=== PATIENT | male | born 1950 | race Caucasian/White ===

== ENCOUNTER 2018-01-05 19:09 | Emergency (ER) | payer MEDICARE ==
[2018-01-05 20:05] LABS: BASO % 0.2 % (0.0-1.0); EOS # 0.3 10^3/uL (0.0-0.50); EOS % 2.4 % (0.0-3.0); HEMATOCRIT 35.5 % (42.0-52.0); HEMOGLOBIN 11.8 g/dl (13.5-17.5); IMMATURE GRANULOCYTE % 0.7 % (0-3.0); LYMPH # 0.3 10^3/uL (1.5-4.5); LYMPH % 2.6 % (24.0-44.0); MEAN CORPUSCULAR HEMOGLOBIN 27.8 pg (27.0-33.0); MEAN CORPUSCULAR HGB CONC 33.2 g/dl (32.0-36.5); MEAN CORPUSCULAR VOLUME 83.5 fl (80.0-96.0); MONO # 0.5 10^3/uL (0.0-0.8); MONO % 4.3 % (0.0-5.0); NEUTROPHILS # 9.5 10^3/uL (1.8-7.7); NEUTROPHILS % 89.8 % (36.0-66.0); PLATELET COUNT, AUTOMATED 142 10^3/uL (150-450); RED BLOOD COUNT 4.25 10^6/uL (4.30-6.10); RED CELL DISTRIBUTION WIDTH 14.5 % (11.5-14.5); WHITE BLOOD COUNT 10.6 10^3/uL (4.0-10.0)
[2018-01-05 20:23] LABS: APPEARANCE, URINE CLEAR (CLEAR); BACTERIA, URINE AUTO NEGATIVE (NEGATIVE); BILIRUBIN, URINE AUTO NEGATIVE (NEGATIVE); BLOOD, URINE BLOOD NEGATIVE (NEGATIVE); COLOR, URINE YELLOW (YELLOW); GLUCOSE, URINE (UA) AUTO NEGATIVE (NEGATIVE); KETONE, URINE AUTO NEGATIVE (NEGATIVE); LEUKOCYTE ESTERASE, URINE AUTO NEGATIVE (NEGATIVE); NITRITE, URINE AUTO NEGATIVE (NEGATIVE); PROTEIN, URINE AUTO NEGATIVE (NEGATIVE); RBC, URINE AUTO 8 /HPF (0-3); SPECIFIC GRAVITY URINE AUTO 1.015 (1.002-1.035); SQUAMOUS EPITHELIAL CELL UR AU 0 /HPF (0-6); UROBILINOGEN, URINE AUTO 0.2 mg/dL (0.0-2.0); WBC, URINE AUTO 2 /HPF (0-3)
[2018-01-05 20:28] LABS: ALBUMIN 3.2 GM/DL (3.2-5.2); ALBUMIN/GLOBULIN RATIO 1.03 (1.00-1.93); ALKALINE PHOSPHATASE 46 U/L (45-117); ALT/SGPT 19 U/L (12-78); ANION GAP 11 MEQ/L (8-16); AST/SGOT 12 U/L (7-37); BILIRUBIN,DIRECT 0.2 MG/DL (0.0-0.2); BILIRUBIN,TOTAL 0.5 MG/DL (0.2-1.0); BLOOD UREA NITROGEN 23 MG/DL (7-18); CARBON DIOXIDE LEVEL 24 MEQ/L (21-32); CHLORIDE LEVEL 101 MEQ/L (98-107); GLOMERULAR FILTRATION RATE > 60.0 (>49); GLUCOSE, FASTING 136 MG/DL (70-100); POTASSIUM SERUM 4.2 MEQ/L (3.5-5.1); SODIUM LEVEL 136 MEQ/L (136-145); TOTAL PROTEIN 6.3 GM/DL (6.4-8.2)
[2018-01-05 20:28] LABS: LACTIC ACID SEPSIS PROTOCOL 1.5 MMOL/L (0.4-2.0)
[2018-01-05 20:35] LABS: POSITIVE DIFF POS FLAG
[2018-01-05] MEDS: ACETAMINOPHEN 325 MG TAB PO (20:39)
[2018-01-05] MEDS: LevoFLOXacin 500 MG TABLET PO (21:32)
== END 2018-01-05 21:45 | disposition home or self-care (01) ==
LOC: M ED 19:09
DX: R50.9 Fever, unspecified (principal); Z85.79 Personal history of other malignant neoplasms of lymphoid, hematopoietic and related tissues; E78.00 Pure hypercholesterolemia, unspecified; Z96.641 Presence of right artificial hip joint; Z79.899 Other long term (current) drug therapy
CPT/HCPCS: 71046

== ENCOUNTER → 2020-12-08 | Outpatient (CLI) | payer BC ==
[~2020-12-08] MED LIST: ALLO100T PO; LEVO-86 PO; PRED20TA PO; PROC10TA4 PO; RITU10VLL IV; SIMV20TA22 PO; [UNRECOGNIZED DRUG - CODE] IV
--- NOTE | 2020-12-08 09:33 | REP ---
INDICATION: CELLULITIS LEFT LOWER LIMB, PAIN LEFT FOOT COMPARISON: None. TECHNIQUE: AP, lateral, bilateral oblique views left foot. FINDINGS: Age-related changes are appreciated. There is no evidence for acute fracture or dislocation. Surrounding soft tissues are grossly unremarkable and without subcutaneous emphysema or foreign body identified. IMPRESSION: The age-related changes. No obvious acute pathology by radiographic evaluation. <Electronically signed by Hernan Sanches > 12/08/20 0914
== END ==
LOC: M WUC 09:03
PROVIDERS: ATTEND Physician Assistant
DX: L03.116 Cellulitis of left lower limb (principal); M79.672 Pain in left foot

== ENCOUNTER 2020-12-14 14:00 | Emergency (ER) | payer BC ==
[~2020-12-14] VITALS: Ht 182.9 cm; Wt 83.9 kg
[2020-12-14] MEDS ORDERED: METF10004 PO (14:11)
--- NOTE | 2020-12-14 16:32 | REP ---
INDICATION: FB in foot. COMPARISON: None. TECHNIQUE: Multiple ultrasonographic images were obtained over the plantar surface of the right foot with the region of clinical interest to assess for an ultrasonographic visible foreign body. FINDINGS: Is seen within the areas scanned there is a small 3 mm sized echogenic focus which exhibits acoustic shadowing. IMPRESSION: Small echogenic focus in the plantar surface of the right foot as described above possibly representing the suspected foreign body. The exact etiology is unknown. CT is recommend. <Electronically signed by Aravind Fall > 12/14/20 [id number]
[2020-12-14] MEDS ORDERED: DOXY100C37 PO (16:44)
[2020-12-14 16:54] VITALS: BP 127/65
== END 2020-12-14 16:55 | disposition home or self-care (01) ==
LOC: M ED 14:00
DX: S90.852A Superficial foreign body, left foot, initial encounter (principal); W45.8XXA Other foreign body or object entering through skin, initial encounter; Y92.9 Unspecified place or not applicable; Y93.9 Activity, unspecified; Y99.9 Unspecified external cause status; E11.9 Type 2 diabetes mellitus without complications; E78.5 Hyperlipidemia, unspecified; Z85.72 Personal history of non-Hodgkin lymphomas; Z96.641 Presence of right artificial hip joint; Z79.899 Other long term (current) drug therapy

== ENCOUNTER → 2024-02-03 | Outpatient (CLI) | payer OTHER ==
[~2024-02-03] MED LIST changes: +DOXY-323 PO; +METF10004 PO; -PROC10TA4 PO; +PROC10TA5 PO
== END ==
LOC: M WUC 08:35
PROVIDERS: ATTEND Physician Assistant
DX: S20.222A Contusion of left back wall of thorax, initial encounter (principal); W01.10XA Fall on same level from slipping, tripping and stumbling with subsequent striking against unspecified object, initial encounter; Y92.9 Unspecified place or not applicable; Y93.9 Activity, unspecified; Y99.9 Unspecified external cause status